=== PATIENT | female | born 1955 | race Caucasian/White ===

== ENCOUNTER → 2017-01-14 | Outpatient (CLI) | payer OTHER ==
[~2017-01-14] MED LIST: AZIT250T6 PO; HYDR-2049 PO; IBUP200T50 PO; IODORAL PO; METO50TA78 PO; [UNRECOGNIZED DRUG - CODE]
[2017-01-14 12:08] LABS: BASOPHILS % (AUTO) 0.3 % (0-2); EOSINOPHILS # (AUTO) 0.1 T/MM3 (0-0.5); EOSINOPHILS % (AUTO) 1.5 % (0-4); HCT - HEMATOCRIT 40.1 % (36-46); HGB - HEMOGLOBIN 13.3 GM/DL (12-16); IMMATURE GRANULOCYTE # (AUTO) 0.03 T/MM3 (0.00-0.03); IMMATURE GRANULOCYTE % (AUTO) 0.3 % (0.0-0.5); LYMPHOCYTES # (AUTO) 2.1 T/MM3 (1-4.8); LYMPHOCYTES % (AUTO) 23.8 % (23-45); MEAN CORPUSCULAR HGB 29.5 UUG (26-34); MEAN CORPUSCULAR HGB CONC(MCHC 33.2 GM/DL (31-37); MEAN CORPUSCULAR VOLUME 88.9 UM3 (80-100); MEAN PLATELET VOLUME 8.6 UM3 (9.4-12.4); MONOCYTES # (AUTO) 0.5 T/MM3 (0-0.8); MONOCYTES % (AUTO) 5.7 % (0-9.0); NEUTROPHILS #(AUTO)-ABSOLUTE 6.1 T/MM3 (1.8-7.7); NEUTROPHILS % (AUTO) 68.4 % (33-66); RED BLOOD COUNT 4.51 M/MM3 (4.00-5.20); WBC - WHITE BLOOD COUNT 8.9 T/MM3 (4.5-11.0)
[2017-01-14 12:18] LABS: ALKALINE PHOSPHATASE 104 U/L (38-126); ALT (SGPT) 27 U/L (9-52); ANION GAP 15 MEQ/L (5-15); AST (SGOT) 25 U/L (14-36); BUN/CREATININE RATIO 20 RATIO (6-26); CALCIUM 9.5 MG/DL (8.4-10.2); CHLORIDE 102 MEQ/L (98-107); CO2 - CARBON DIOXIDE 30 MEQ/L (22-30); CREATININE 0.8 MG/DL (0.7-1.2); GLOMERULAR FILTRATION RATE 73; GLUCOSE 95 MG/DL (65-110); POTASSIUM 3.6 MEQ/L (3.6-5); SODIUM 147 MEQ/L (134-144); TOTAL PROTEIN 8.1 G/DL (6.3-8.2)
[2017-01-14 12:48] LABS: THYROID STIM HORMONE-TSH 2.58 MIU/L (0.47-4.68)
== END ==
LOC: LAB 11:49
PROVIDERS: ATTEND Physician Assistant
DX: E03.9 Hypothyroidism, unspecified (principal); I10 Essential (primary) hypertension
CPT/HCPCS: 36415; 80053; 84443; 85025

== ENCOUNTER → 2017-01-30 | Outpatient (CLI) | payer OTHER ==
[2017-01-30 15:51] LABS: MONOTEST NEGATIVE (NEGATIVE)
--- NOTE | 2017-01-31 08:49 | DI ---
Indication: ITS.REASON: R05 COUGH; R53.83 Other fatigue CHEST, PA LATERAL: Comparison: None Technique: PA and lateral chest Findings: Patient shows normal heart, mediastinum and central vascularity. No focal prequel pulmonary consolidations are appreciated. Mild degenerative changes present in the midthoracic region although no fractures are identified. Impression: No acute cardiopulmonary findings. .
== END ==
LOC: IMA 15:02
PROVIDERS: ATTEND Internal Medicine
DX: R53.83 Other fatigue (principal); R05 Cough
CPT/HCPCS: 36415; 84155; 84156; 84165; 84166; 85652; 86038; 86308; 87207

== ENCOUNTER → 2017-02-06 | Outpatient (CLI) | payer OTHER ==
[2017-02-07 02:48] LABS: HEPATITIS B SURFACE AG - BATCH NEGATIVE (NEGATIVE)
[2017-02-07 02:54] LABS: HEPATITIS A ANTIBODY IGM-BATCH NEGATIVE (NEGATIVE)
[2017-02-07 03:06] LABS: HEPATITIS C VIRUS AB-BATCH NEGATIVE (NEGATIVE)
== END ==
LOC: LAB 17:20
PROVIDERS: ATTEND Internal Medicine
DX: M79.1 Myalgia (principal); R70.0 Elevated erythrocyte sedimentation rate; R77.1 Abnormality of globulin; R53.83 Other fatigue
CPT/HCPCS: 36415; 80074; 82085; 86200; 86235; 86431